=== PATIENT | male | born 1955 | race Caucasian/White ===

== ENCOUNTER 2020-07-19 09:20 | Inpatient (IN) | payer MEDICARE, SELFPAY ==
[2020-07-19] VITALS (9 sets, daily range): BP systolic 119–151; BP diastolic 68–88; PULSE 66–82; RESP 12–18; TEMP 36.4–36.5; O2SAT 97–99; BMI 24.3
--- NOTE | 2020-07-19 | ECG_ITS ---
Test Reason : EPIGASTRIC PAIN Blood Pressure : / mmHG Vent. Rate : 073 BPM Atrial Rate : 073 BPM P-R Int : 154 ms QRS Dur : 084 ms QT Int : 392 ms P-R-T Axes : 064 052 054 degrees QTc Int : 431 ms Normal sinus rhythm Normal ECG When compared with ECG of 01-SEP-2019 16:14, No significant change was found Referred By: Generic ED Physician Electronically Signed By:MYLA DON MD
--- NOTE | ~2020-07-19 | CT_ITS ---
EXAMINATION: CT ABDOMEN AND PELVIS WITHOUT AND WITH CONTRAST CLINICAL INFORMATION: Abnormality in pancreas and bladder COMPARISON: 07/19/2020 study TECHNIQUE: Multidetector volumetric imaging was performed of the abdomen and pelvis before and after the IV administration of 85 mL of Omnipaque 300 intravenous contrast. Sagittal and coronal reformatted images were obtained on the technologist's workstation. This CT examination was performed using dose optimization techniques as appropriate, variously including the following: *Automated exposure control *Adjustment of mA and/or kV according to patient size (this includes techniques or standardized protocols for targeted exams where dose is matched to indication/reason for exam; i.e. extremities or head) *Use of iterative reconstruction technique DLP: 757 mGy-cm FINDINGS: LUNG BASES: The visualized lung bases are unremarkable. LIVER, GALLBLADDER, AND BILIARY TREE: The liver is normal in size, shape, and attenuation. No focal hepatic lesion or biliary ductal dilatation is present. The gallbladder is unremarkable with no evidence of radiopaque gallstones, gallbladder wall thickening, or obvious pericholecystic inflammatory changes. PANCREAS: Pancreas itself is unremarkable. There is no pancreatic ductal dilatation in the pancreatic parenchyma demonstrates homogeneous enhancement. There is complex peripancreatic fluid seen more likely representing sequela of prior pancreatitis as this extends along the retroperitoneum into the lesser sac and into the perisplenic region. This does not track significantly along the pararenal space. SPLEEN: Unremarkable ADRENAL GLANDS: Unremarkable KIDNEYS AND URETERS: Tiny low-attenuation cortical cysts bilaterally but otherwise the kidneys are normal in size, shape, and attenuation. No hydronephrosis, hydroureter, or calculi seen. No perinephric stranding. BLADDER: Bladder is decompressed but relatively thick-walled. The prostate is enlarged with a prominent medial lobe of prostate protruding into the bladder base. GASTROINTESTINAL TRACT: Normal-appearing appendix in the right lower quadrant. Visualized small bowel unremarkable ABDOMINAL WALL: No significant hernia is appreciated. LYMPH NODES: Normal VASCULAR: Vascular calcification within the aorta iliac system PELVIC VISCERA: Prominent enlarged prostate with some protrusion into the bladder base from an enlarged medial lobe OSSEOUS STRUCTURES: Degenerative changes in the lower lumbar spine. CT/CT abdomen pelvis wo/w con IMPRESSION: Low attenuation fluid collection in the peripancreatic space as described above. This is difficult to accurately measure due to the irregular shape as it conforms to adjacent structures but measures approximately 14.5 x 7.0 x 7.0 cm in size. In this location this likely represents sequela of prior pancreatitis. A retroperitoneal lymphangioma could have a similar morphology but the peripancreatic location is more suggestive of pancreatic etiology. Bladder is partially decompressed but there is mild diffuse wall thickening suggesting a component of bladder outlet obstruction. The prostate is enlarged with a prominent medial lobe of the prostate protruding into the bladder base.
--- NOTE | ~2020-07-19 | CT_ITS ---
EXAMINATION: CT ABDOMEN AND PELVIS WITHOUT CONTRAST CLINICAL INFORMATION: Abdominal pain and vomiting COMPARISON: None TECHNIQUE: Multidetector volumetric imaging was performed from the superior aspect of the liver through the pubic symphysis. Sagittal and coronal reformatted images were obtained on the technologist's workstation. This CT examination was performed using dose optimization techniques as appropriate, variously including the following: *Automated exposure control *Adjustment of mA and/or kV according to patient size (this includes techniques or standardized protocols for targeted exams where dose is matched to indication/reason for exam; i.e. extremities or head) *Use of iterative reconstruction technique DLP: 8 x 5 mGy-cm FINDINGS: LUNG BASES: The visualized lung bases are unremarkable. LIVER, GALLBLADDER, AND BILIARY TREE: The liver is normal in size, shape, and attenuation. No focal hepatic lesion or biliary ductal dilatation is present. The gallbladder is unremarkable with no evidence of radiopaque gallstones, gallbladder wall thickening, or obvious pericholecystic inflammatory changes. PANCREAS: Unremarkable. SPLEEN: Unremarkable. ADRENAL GLANDS: Unremarkable. KIDNEYS AND URETERS: There is a small 1 mm stone in the left kidney. The kidneys are otherwise unremarkable. BLADDER: Not optimally distended. There may be mild diffuse bladder wall thickening. There is abnormal soft tissue at the base of the bladder. This uncertain whether this is related to the prostate gland or could represent a bladder lesion. GASTROINTESTINAL TRACT: There is question of wall wall thickening of the proximal stomach. There are cystic fluid collections or masses seen adjacent to the stomach and body and tail of the pancreas. The largest area measures 9 x 6 x 13 cm in transverse AP and longitudinal dimension. No free ascites is seen. The small and large bowel is unremarkable. The appendix is unremarkable. ABDOMINAL WALL: No significant hernia is appreciated. LYMPH NODES: Normal. VASCULAR: There is evidence of atherosclerotic disease. No aneurysm is seen. PELVIC VISCERA: The prostate gland is enlarged and measures 4.3 x 5.3 cm in AP and transverse dimension. OSSEOUS STRUCTURES: There is question of a lytic lesion versus old fracture left lateral 10th rib for example sagittal reconstructed image 12. There is old fractures of the right lateral lower ribs. There is degenerative changes of the spine. CT/CT abdomen pelvis wo con IMPRESSION: Question wall thickening of the proximal stomach. Low-attenuation cystic peritoneal masses seen adjacent to the stomach and body and tail of pancreas. Appearance is a suggestive of peritoneal disease. Malignant and infectious process considered. Abnormal soft tissue at the base of the bladder. It is uncertain whether this is related to the prostate gland or could represent a bladder lesion. Small left renal stone.
--- NOTE | 2020-07-19 09:45 | ED.ABDPAIN ---
HPI - Abdominal Pain General Chief Complaint: Abdominal Pain Stated Complaint: heartburn, upset stomach Time Seen by Provider: 07/19/20 09:43 Source: patient Mode of arrival: ambulatory Limitations: no limitations History of Present Illness HPI narrative: 65 y/o male with no significant medical history presents to the ER from Urgent Care with nausea and vomiting for the last 5-6 days. He has been unable to keep down solid food. He has burning upper abdominal pain that radiates up into his chest. He has been tolerating liquids but every times he tries to eat, about an hour later he vomits. He denies chest pain, SOB, fever, chills, urinary symptoms. He has no history of similar presentations in the past. He has a 5+ lb weight loss in the last 6 days. He has no appetite and does not want to eat anything. No fevers, chills, urinary symptoms. MD elicited complaint: abdominal pain Pertinent past history: none Onset (ago): day(s) (6) Pain Consistency: intermittent Location: epigastric Severity: moderate Quality: aching and burning Radiation: chest Migration to: no migration Exacerbating factors: eating Relieving factors: nothing Associated symptoms: nausea and vomiting Related Data Home Medications Medication Instructions Recorded Confirmed No Known Home Meds 07/19/20 07/19/20 Allergies Allergy/AdvReac Type Severity Reaction Status Date / Time No Known Allergies Allergy Mild Verified 07/19/20 09:30 Review of Systems Review of Systems Constitutional: No Fever, No Chills ENT/Mouth: No sore throat, No Rhinorrhea, No Swallowing Difficulty Cardiovascular: No Chest Pain, No SOB, No Orthopnea, No Edema Respiratory: No Cough, No Sputum, No Wheezing, No dyspnea Gastrointestinal: + Nausea, + Vomiting, No Diarrhea, + abdominal Pain Genitourinary: No Dysuria, No Urinary Frequency, No Hematuria Musculoskeletal: No joint pain, No Myalgias Skin: No Skin Lesions, No rash Neuro: No Weakness, No Numbness, No Dizziness, No Headache Psych: No Anxiety/Panic, No Depression Heme/Lymph: No Bruising, No Lymphadenopathy Endocrine: No Polyuria, No Polydipsia Physical Exam Vital Signs: Vital Signs: Last Vital Signs Temp 97.6 F 07/19/20 09:30 Pulse 76 07/19/20 10:10 Resp 17 07/19/20 10:10 BP 135/82 07/19/20 10:10 Pulse Ox 98 07/19/20 10:10 Body Mass Index 24.3 Appearance: Alert. Oriented X3. No acute distress. Eyes: Pupils equal, round and reactive to light. ENT: Pharynx normal. Neck: Normal inspection. Neck supple. CVS: Normal heart rate and rhythm. Pulses normal. Respiratory: No respiratory distress. Breath sounds normal. Abdomen: Soft with mild epigastric tenderness, no rebound or guarding. +BS x4 Skin: Skin warm and dry. Normal skin color. Normal skin turgor. No rashes. Extremities: No lower extremity edema. Neuro: Oriented X 3. No motor deficit. No sensory deficit. Course Course Course Narrative: 65 y/o male presenting with 6 days of nausea, vomiting and upper abdominal/epigastric pain. + weight loss. No appetite at all. He appears well and VS are stable. Abd is soft. Will get labs and CT scan for further evaluation. Reevaluation(s) Reevaluation #1: CT showing wall thickening of proximal stomach, cystic fluid collections vs masses adjacent to stomach and pancreatic tail. largest area measures [id number]. bowel is unremarkable, pancreas itself is normal. old fractures vs lytic lesion of 10th left lateral rib. masses are concerning for malignancy vs infectious process per report. No fever or leukocytosis. WIll add ESR and CRP although infectious process is less likely. Will require admission for further imaging and workup given his inability to tolerate PO. Results were discussed with the patient and he is agreeable to admission. Dr. Regan TT for admission. MDM - Abdominal Pain Lab Data Result diagrams: 07/19/20 10:00 07/19/20 10:00 Labs: Lab Results 07/19/20 07/19/20 07/19/20 Range/Units 10:00 10:00 10:00 WBC 6.6 (4.8-10.8) X10*3/uL RBC 5.06 (4.60-5.80) X10*6/uL Hgb 17.2 (14.0-18.0) g/dl Hct 47.7 (42-52) % MCV 94.3 (80-98) fL MCH 34.0 H (27.0-33.0) pg MCHC 36.1 H (31.0-36.0) g/dl RDW 12.8 (11.0-16.0) % Plt Count 179 (160-400) X10*3/uL MPV 10.3 (9.4-12.4) fL Immature Gran % (Auto) 0.2 (0.0-0.4) % Neut % (Auto) 62.4 (45-73) % Lymph % (Auto) 26.8 (20-40) % [place] % (Auto) 8.7 (2-11) % Eos % (Auto) 1.1 (0-4) % Baso % (Auto) 0.8 (0-2) % Lymph # (Auto) 1.8 (1.2-4.9) X10*3/uL [place] # (Auto) 0.6 (0.1-1.2) X10*3/uL Eos # (Auto) 0.1 (0.0-0.4) X10*3/uL Baso # (Auto) 0.1 (0.0-0.2) X10*3/uL Abs Immat Gran (auto) 0.01 (0.00-0.03) X10*3/uL Absolute Neuts (auto) 4.2 (2.0-8.3) X10*3/uL Absolute Nucleated RBC 0.000 (0.0-0.012) X10*3/uL Nucleated RBC % (auto) 0.0 (0.0-0.2) /100WBC Hold Blue Top SEE NOTE Sodium 140 (135-145) mmol/L Potassium 3.9 (3.3-5.1) mmol/L Chloride 109 H (96-108) mmol/L Carbon Dioxide 23 (22-29) mmol/L Anion Gap 12 (12-20) BUN 9 (9-16) mg/dL Creatinine 0.83 (0.5-1.4) mg/dL Estim Creat Clear Calc 77.9 Estimated GFR > 60 Random Glucose 114 (60-115) mg/dL Calcium 9.5 (8.4-10.2) mg/dL Magnesium 2.2 (1.6-2.6) mg/dL Total Bilirubin 0.6 (0.0-1.0) mg/dL Direct Bilirubin 0.3 (0.0-0.5) mg/dL AST 18 (5-37) U/L ALT 20 (0-40) U/L Alkaline Phosphatase 46 (39-117) U/L Total Protein 6.9 (6.5-8.0) g/dL Albumin 4.4 (3.5-5.0) g/dL Lipase 23 (8-78) U/L COVID-19 ([facility]) (Negative) COVID-19 Clin Com 07/19/20 Range/Units 10:34 WBC (4.8-10.8) X10*3/uL RBC (4.60-5.80) X10*6/uL Hgb (14.0-18.0) g/dl Hct (42-52) % MCV (80-98) fL MCH (27.0-33.0) pg MCHC (31.0-36.0) g/dl RDW (11.0-16.0) % Plt Count (160-400) X10*3/uL MPV (9.4-12.4) fL Immature Gran % (Auto) (0.0-0.4) % Neut % (Auto) (45-73) % Lymph % (Auto) (20-40) % [place] % (Auto) (2-11) % Eos % (Auto) (0-4) % Baso % (Auto) (0-2) % Lymph # (Auto) (1.2-4.9) X10*3/uL [place] # (Auto) (0.1-1.2) X10*3/uL Eos # (Auto) (0.0-0.4) X10*3/uL Baso # (Auto) (0.0-0.2) X10*3/uL Abs Immat Gran (auto) (0.00-0.03) X10*3/uL Absolute Neuts (auto) (2.0-8.3) X10*3/uL Absolute Nucleated RBC (0.0-0.012) X10*3/uL Nucleated RBC % (auto) (0.0-0.2) /100WBC Hold Blue Top Sodium (135-145) mmol/L Potassium (3.3-5.1) mmol/L Chloride (96-108) mmol/L Carbon Dioxide (22-29) mmol/L Anion Gap (12-20) BUN (9-16) mg/dL Creatinine (0.5-1.4) mg/dL Estim Creat Clear Calc Estimated GFR Random Glucose (60-115) mg/dL Calcium (8.4-10.2) mg/dL Magnesium (1.6-2.6) mg/dL Total Bilirubin (0.0-1.0) mg/dL Direct Bilirubin (0.0-0.5) mg/dL AST (5-37) U/L ALT (0-40) U/L Alkaline Phosphatase (39-117) U/L Total Protein (6.5-8.0) g/dL Albumin (3.5-5.0) g/dL Lipase (8-78) U/L COVID-19 ([facility]) Negative (Negative) COVID-19 Clin Com See Note Discharge Plan Discharge Clinical Impression: Mass of peritoneum Patient Disposition: Admitted As Inpatient [facility] Past Medical History Attestation statement: The following information was validated with the patient. Social History Social History Alcohol intake: current Alcohol intake frequency: 0-2 drinks per day Alcohol type: beer Patient Tobacco Use Status: Never used Tobacco Substance Use Type: Marijuana Advance Directives: Yes Advance Directives Information Provided: No Advance Directives on File: No
[2020-07-19 10:05] LABS: MANUAL DIFF FLAG NO
[2020-07-19 10:15] LABS: Basophils Absolute Auto 0.1 X10*3/uL (0.0-0.2); Basophils Percent Auto 0.8 % (0-2); Eosinophils Absolute Auto 0.1 X10*3/uL (0.0-0.4); Eosinophils Percent Auto 1.1 % (0-4); Hematocrit 47.7 % (42-52); Hemoglobin 17.2 g/dl (14.0-18.0); Imm Gran Abs Auto 0.01 X10*3/uL (0.00-0.03); Imm Gran Pct Auto 0.2 % (0.0-0.4); Lymphocytes Absolute Auto 1.8 X10*3/uL (1.2-4.9); Lymphocytes Percent Auto 26.8 % (20-40); Mean Corpuscular HGB Conc 36.1 g/dl (31.0-36.0); Mean Corpuscular Volume 94.3 fL (80-98); Mean Platelet Volume 10.3 fL (9.4-12.4); Monocytes Absolute Auto 0.6 X10*3/uL (0.1-1.2); Monocytes Percent Auto 8.7 % (2-11); Neutrophils Absolute Auto 4.2 X10*3/uL (2.0-8.3); Neutrophils Percent Auto 62.4 % (45-73); Platelet Count 179 X10*3/uL (160-400); Red Blood Count 5.06 X10*6/uL (4.60-5.80); Red Cell Distribution Width 12.8 % (11.0-16.0); White Blood Count 6.6 X10*3/uL (4.8-10.8)
[2020-07-19] MEDS: Omeprazole 40 MG CAPSULE.DR PO (10:24)
[2020-07-19] MEDS: Magnesium Hydrox/Alum Hydrox 30 ML ORAL.SUSP PO (10:24)
[2020-07-19] MEDS: Lidocaine HCl Viscous 2 % 15 ML SOLUTION MUCOUS MEM (10:24)
[2020-07-19 10:36] LABS: Alanine Aminotransferase 20 U/L (0-40); Albumin Level 4.4 g/dL (3.5-5.0); Alkaline Phosphatase 46 U/L (39-117); Anion Gap 12 (12-20); Aspartate Amino Transferase 18 U/L (5-37); Bilirubin Direct 0.3 mg/dL (0.0-0.5); Bilirubin Total 0.6 mg/dL (0.0-1.0); Blood Urea Nitrogen 9 mg/dL (9-16); Calcium 9.5 mg/dL (8.4-10.2); Carbon Dioxide 23 mmol/L (22-29); Chloride 109 mmol/L (96-108); Creatinine Clr Calc Pharmacy 77.9; Estimated Glomerular Filt Rate > 60; Glucose Random 114 mg/dL (60-115); Lipase 23 U/L (8-78); Magnesium 2.2 mg/dL (1.6-2.6); Potassium 3.9 mmol/L (3.3-5.1); Sodium 140 mmol/L (135-145); Total Protein 6.9 g/dL (6.5-8.0)
[2020-07-19 11:02] LABS: COVID-19 Test Negative (Negative); IDNOW Serial# 9DD0AD1C
[2020-07-19 11:42] LABS: C Reactive Protein 0.05 mg/dL (< or = 0.50)
--- NOTE | 2020-07-19 12:10 | PC.NURSE ---
Patient complains of nausea after eating a cracker. Pt denies any pain currently
[2020-07-19 12:11] LABS: Erythrocyte Sedimentation Rate 2 MM/HR (0-15)
[2020-07-19] MEDS: ondansetron HCL 4 MG/2 ML VIAL IVPUSH (12:20)
--- NOTE | 2020-07-19 12:58 | P.HPHOSP_ITS ---
[facility] Pertinent family history: Sister had breast cancer Surgical History (Updated 07/19/20 @ 12:59 by Serina Flynn NP) H/O hernia repair H/O release of tendon History of ankle surgery Social History Alcohol intake: current Alcohol intake frequency: 0-2 drinks per day Alcohol type: beer Patient Tobacco Use Status: Never used Tobacco Substance Use Type: Marijuana Advance Directives: Yes Advance Directives Information Provided: No Advance Directives on File: No Meds Allergies Allergy/AdvReac Type Severity Reaction Status Date / Time No Known Allergies Allergy Mild Verified 07/19/20 09:30 Home Medications Medication Instructions Recorded Confirmed Last Taken Type No Known Home Meds 07/19/20 07/19/20 Unknown History Physical Exam Vital Signs and Narrative: Vital Signs: Last Vital Signs Temp 97.6 F 07/19/20 09:30 Pulse 82 07/19/20 11:10 Resp 18 07/19/20 11:10 BP 146/87 H 07/19/20 11:10 Pulse Ox 98 07/19/20 10:10 Body Mass Index 24.3 Results Labs CBC and Chem 7: 07/19/20 10:00 07/19/20 10:00 Labs: Laboratory Results - last 24 hr 07/19/20 07/19/20 07/19/20 10:00 10:00 10:00 MCV 94.3 MCH 34.0 H MCHC 36.1 H RDW 12.8 Plt Count 179 MPV 10.3 Immature Gran % (Auto) 0.2 Neut % (Auto) 62.4 Lymph % (Auto) 26.8 [place] % (Auto) 8.7 Eos % (Auto) 1.1 Baso % (Auto) 0.8 Lymph # (Auto) 1.8 [place] # (Auto) 0.6 Eos # (Auto) 0.1 Baso # (Auto) 0.1 Abs Immat Gran (auto) 0.01 Absolute Neuts (auto) 4.2 Absolute Nucleated RBC 0.000 Nucleated RBC % (auto) 0.0 ESR Hold Blue Top SEE NOTE Anion Gap 12 Estim Creat Clear Calc 77.9 Estimated GFR > 60 Random Glucose 114 Calcium 9.5 Magnesium 2.2 Total Bilirubin 0.6 Direct Bilirubin 0.3 AST 18 ALT 20 Alkaline Phosphatase 46 C-Reactive Protein 0.05 Total Protein 6.9 Albumin 4.4 Lipase 23 COVID-19 ([facility]) COVID-19 Clin Com 06/09/21 06/09/21 10:00 10:34 MCV MCH MCHC RDW Plt Count MPV Immature Gran % (Auto) Neut % (Auto) Lymph % (Auto) [place] % (Auto) Eos % (Auto) Baso % (Auto) Lymph # (Auto) [place] # (Auto) Eos # (Auto) Baso # (Auto) Abs Immat Gran (auto) Absolute Neuts (auto) Absolute Nucleated RBC Nucleated RBC % (auto) ESR 2 Hold Blue Top Anion Gap Estim Creat Clear Calc Estimated GFR Random Glucose Calcium Magnesium Total Bilirubin Direct Bilirubin AST ALT Alkaline Phosphatase C-Reactive Protein Total Protein Albumin Lipase COVID-19 ([facility]) Negative COVID-19 Clin Com See Note Imaging Radiologist's Impressions: Impressions Abdomen/Pelvis CT 07/19/20 09:53 IMPRESSION: Question wall thickening of the proximal stomach. Low-attenuation cystic peritoneal masses seen adjacent to the stomach and body and tail of pancreas. Appearance is a suggestive of peritoneal disease. Malignant and infectious process considered. Abnormal soft tissue at the base of the bladder. It is uncertain whether this is related to the prostate gland or could represent a bladder lesion. Small left renal stone.
--- NOTE | 2020-07-19 13:16 | PC.NURSE ---
pt states nausea is much better after zofran. Pt denies any pain. Pt is currently sitting up in bed talking with visitor in no distress
[2020-07-19 13:51] LABS: Glucose Urine UA NEG (NEG); Leukocyte Esterase Urine NEG (NEG); Nitrite Urine NEG (NEG); Urine Blood NEG (NEG); Urine Ketones NEG (NEG); Urine Protein NEG (NEG-TRACE)
[2020-07-19 13:54] LABS: Appearance Urine HAZY; Color Urine YELLOW
--- NOTE | 2020-07-19 13:59 | PC.NURSE ---
MRI screening form completed and faxed to MRI.
--- NOTE | 2020-07-19 14:09 | PM.GICN ---
History of Present Illness Data of Consult Service Date: 07/19/20 Requesting physician: Serina Flynn Primary Care Provider: Paulino Christian MD HPI Reason for consult: nausea, an imaging 65 y/o male with no major medical issues who I am asked to see for evaluation of nausea and vomiting with abnormal imaging He had almost a week hx of nausea and vomiting of food normally within 1-2 hr of eating, without any blood or coffee grounds seen. He had been noting severe reflux and early satiety as well but denies abdominal pain but more a sensation of twisting inside the body. appetite has been good before tis and weight was normal, without any symptoms. He had noted 5# weight loss within the last week. He denies melena, rectal bleeding, or constipation or diarrhea. No dysphagia or fevers, chills. No chest pain He had colonoscopy recently at outside hospital which was apparently normal, never had EGD. He smokes THC, drinks beer daily for years about 2-3 cans. Labs: unremarkable, CT imaging --personally reviewed, abn cystic collections around stomach, thickened bladder Review of Systems Review of Systems: Constitutional: No Fever, No Chills ENT/Mouth: No sore throat, No Rhinorrhea, No Swallowing Difficulty Cardiovascular: No Chest Pain, No SOB, No Orthopnea, No Edema Respiratory: No Cough, No Sputum, No Wheezing, No dyspnea Gastrointestinal: + Nausea, + Vomiting, No Diarrhea Genitourinary: No Dysuria, No Urinary Frequency, No Hematuria Musculoskeletal: No joint pain, No Myalgias Skin: No Skin Lesions, No rash Neuro: No Weakness, No Numbness, No Dizziness, No Headache Psych: No Anxiety/Panic, No Depression Heme/Lymph: No Bruising, No Lymphadenopathy Endocrine: No Polyuria, No Polydipsia [facility] Family History Pertinent family history: Sister had breast cancer Surgical History Surgical History (Updated 07/19/20 @ 12:59 by Serina Flynn NP) H/O hernia repair H/O release of tendon History of ankle surgery Social History Social History Alcohol intake: current Alcohol intake frequency: 0-2 drinks per day Alcohol type: beer Patient Tobacco Use Status: Never used Tobacco Substance Use Type: Marijuana Advance Directives: Yes Advance Directives Information Provided: No Advance Directives on File: No Meds Allergies Allergy/AdvReac Type Severity Reaction Status Date / Time No Known Allergies Allergy Mild Verified 07/19/20 09:30 Active Medications: Current Medications Generic Name Dose Route Start Last Admin Trade Name [place] PRN Reason Stop Dose Admin Acetaminophen 650 mg 07/19/20 13:33 Acetaminophen 325 Mg Tablet PO Q6H PRN Pain, Mild (Pain Scale 1-3) Ondansetron HCl 4 mg 07/19/20 13:33 Ondansetron Hcl 4 Mg/2 Ml Vial IVPUSH Q8H PRN Nausea and Vomiting Pantoprazole Sodium 40 mg 07/20/20 06:30 Pantoprazole Sodium 40 Mg/10 Ml Vial IVPUSH DAILY@0630 [facility] Sodium Chloride 3 ml 07/19/20 16:00 0.9 % Sodium Chloride Flush 3 Ml Syringe IVFLUSH QSHIFT [facility] Home Medications Medication Instructions Recorded Confirmed Last Taken Type No Known Home Meds 07/19/20 07/19/20 Unknown History Physical Exam Vital Signs: Vital Signs: Last Vital Signs Temp 97.6 F 07/19/20 09:30 Pulse 78 07/19/20 13:15 Resp 18 07/19/20 13:15 BP 151/88 H 07/19/20 13:15 Pulse Ox 97 07/19/20 13:15 Body Mass Index 24.3 EXAM: GENERAL: The patient is well developed and nontoxic. Relaxed. VITAL SIGNS:see workflow HEENT: Nonicteric sclerae, PERRLA, EOMI. Oropharynx clear. Moist mucous membranes. Conjunctivae appear well perfused. No thyroid mass. CHEST: Chest wall is nontender. HEART: Regular rate and rhythm without murmurs. LUNGS: Clear to auscultation bilaterally, some reduced air entry both sides ABDOMEN: Soft, positive bowel sounds, nontender, no organomegaly.no flank tenderness SKIN: No rash, no excessive bruising, petechiae, or purpura. NEUROLOGIC: Cranial nerves II-XII intact without motor/sensory deficit. AAO x 3 Psych--normal affect MS- normal ROM Results Labs CBC & Chem 7: 07/19/20 10:00 07/19/20 10:00 Labs: Short CBC 07/19/20 Range/Units 10:00 WBC 6.6 (4.8-10.8) X10*3/uL Hgb 17.2 (14.0-18.0) g/dl Hct 47.7 (42-52) % Plt Count 179 (160-400) X10*3/uL BMP 07/19/20 10:00 Sodium 140 Potassium 3.9 Chloride 109 H Carbon Dioxide 23 BUN 9 Creatinine 0.83 Calcium 9.5 Liver Function 07/19/20 Range/Units 10:00 Total Bilirubin 0.6 (0.0-1.0) mg/dL Direct Bilirubin 0.3 (0.0-0.5) mg/dL AST 18 (5-37) U/L ALT 20 (0-40) U/L Alkaline Phosphatase 46 (39-117) U/L Albumin 4.4 (3.5-5.0) g/dL Urine 07/19/20 Range/Units 13:27 Urine Color YELLOW Urine Appearance HAZY Urine pH 6.0 (5.0-8.0) Ur Specific [place] 1.010 (1.005-1.025) Urine Protein NEG (NEG-TRACE) MG/DL Urine Glucose (UA) NEG (NEG) MG/DL Assessment and Plan (1) Vomiting: Qualifiers: Vomiting type: unspecified Vomiting Intractability: non-intractable Nausea presence: without nausea Qualified Code(s): R11.11 - Vomiting without nausea Status: Acute 1/ Symptoms may be due to Gastric outlet obstruction from the lesions around the stomach or may be due to ulcers or other intra-luminal stomach lesions vs gastroparesis. Imaging with lesions as noted may be panc ca or bladder ca with mets although he has no urine sx or prior sx to this admission. Other differential might be pseudocysts from chronic pancreatitis given his alcohol use. He feels better since getting PPI, anti emetics and fluids PLAN: 1/ recommend CT A/P with PO and IV contrast 2/ Possible EGD tomorrow depending on Ct results, keep NPO after midnight 3/ pls check urine cytology, [id number] 4/ keep on PPI meantime Procedures Date of Service Date of Service: 07/19/20
[2020-07-19] MEDS: 0.9 % Sodium Chloride Flush 3 ML SYRINGE IVFLUSH (16:48)
--- NOTE | 2020-07-19 16:58 | HP_ITS ---
DATE OF SERVICE: 07/19/2020 CHIEF COMPLAINT: Abdominal pain. HISTORY OF PRESENT ILLNESS: 65-year-old man presents with complaints of abdominal pain, nausea, and vomiting over the last 6 days. He reports he tries to the eat and then he vomits. He denied fever, chills, recent travel, improperly cooked foods. He reports that he is in fairly good health. He is not on any medications at home. He smokes marijuana and drinks 4 beers a day. In the ER, all his labs were within acceptable limits. Vital signs stable. Abdominal and pelvic CT showed a question of wall thickening of the proximal stomach with a cystic peritoneal mass adjacent to the stomach and body and tail of the pancreas. He received Maalox, Prilosec, and Zofran in the ER. He will be admitted for further management and treatment of abdominal pain with pancreatic abnormality. PAST MEDICAL HISTORY: None. PAST SURGICAL HISTORY: 1. Wrist surgery. 2. Hernia repair with mesh. 3. History of release of tendon to hand. FAMILY HISTORY: Denies cardiac disease and cancer. SOCIAL HISTORY: Drinks 4 beers a day. Denies tobacco use. Uses marijuana on a regular basis. ALLERGIES: NO KNOWN ALLERGIES. MEDICATIONS: None. LABS: WBC 6.6, hemoglobin 17.2, hematocrit 47.7, platelets 179. Sodium is 140, potassium 3.9, chloride is 109. BUN is 9, creatinine 0.83, AST 18, ALT 20, total bilirubin 0.6, lipase 23. COVID negative. REVIEW OF SYSTEMS: CONSTITUTIONAL: Denies any recent fever, chills, or decrease in appetite. RESPIRATORY: Denies any shortness of breath, cough, or sputum production. CARDIOVASCULAR: Denies any chest pain, orthopnea, PND, or edema. GASTROINTESTINAL: See HPI. GENITOURINARY: Denies any dysuria, frequency, or hematuria. MUSCULOSKELETAL: Denies joint pain or swelling. NEUROPSYCH: Denies any weakness or seizures. All other systems are reviewed and are negative. PHYSICAL EXAMINATION: CONSTITUTIONAL: Resting in bed. No acute distress. VITAL SIGNS: 97.6, 70, 18, 151/88, 97% on room air. SKIN: Intact without rash or sores. HEENT: Head is normocephalic, atraumatic. Eyes, pupils are PERRLA. Sclerae anicteric. Mouth and Throat: Mucous membranes are intact and moist. NECK: Supple. No lymphadenopathy. No JVD noted. CHEST: Clear to auscultation without wheezes, rhonchi, or rales. HEART: Regular rate and rhythm. Clear S1, S2. No murmurs, rubs, or gallops. ABDOMEN: Positive bowel sounds. Soft, nontender. No hepatomegaly or splenomegaly noted. NEURO: The patient is alert and oriented x3. Cranial nerves II through XII are grossly intact without focal deficits. ASSESSMENT AND PLAN: 65-year-old man admitted with abnormal CAT scan showing some abnormalities to the proximal stomach and body and tail of the pancreas. According to the CAT scan suggestion its peritoneal disease, malignancy versus infection. 1. Abdominal pain. Abnormal CAT scan, no significant medical history, no history of cancer. Gastroenterology consultation, MR of the abdomen with and without contrast. IV PPI. N.p.o. for now and advance diet. Pain medication as needed. 2. Elevated blood pressure reading. No history of hypertension. Likely related to pain and possible anxiety over being in the hospital. We will monitor blood pressure closely. 3. Deep vein thrombosis prophylaxis with heparin. 4. Case discussed with Dr. Leija. 5. Full code. DANIEL Melgar MD JR/DAR / [id number] I saw and examined patient and discussed finding and mangement with [employer] and agree with rose SALMERON
[2020-07-20] VITALS (13 sets, daily range): BP systolic 97–173; BP diastolic 68–96; PULSE 66–84; RESP 14–18; TEMP 35.8–37.2; O2SAT 95–99
[2020-07-20] MEDS: 0.9 % Sodium Chloride Flush 3 ML SYRINGE IVFLUSH ×3 (01:24→17:22)
[2020-07-20 05:00] LABS: MANUAL DIFF FLAG NO
[2020-07-20 05:08] LABS: Basophils Absolute Auto 0.1 X10*3/uL (0.0-0.2); Basophils Percent Auto 0.8 % (0-2); Eosinophils Absolute Auto 0.2 X10*3/uL (0.0-0.4); Eosinophils Percent Auto 3.5 % (0-4); Hematocrit 46.6 % (42-52); Hemoglobin 16.5 g/dl (14.0-18.0); Imm Gran Abs Auto 0.02 X10*3/uL (0.00-0.03); Imm Gran Pct Auto 0.3 % (0.0-0.4); Lymphocytes Absolute Auto 1.7 X10*3/uL (1.2-4.9); Lymphocytes Percent Auto 28.9 % (20-40); Mean Corpuscular HGB Conc 35.4 g/dl (31.0-36.0); Mean Corpuscular Hemoglobin 33.7 pg (27.0-33.0); Mean Corpuscular Volume 95.1 fL (80-98); Mean Platelet Volume 10.8 fL (9.4-12.4); Monocytes Absolute Auto 0.6 X10*3/uL (0.1-1.2); Monocytes Percent Auto 9.6 % (2-11); Neutrophils Absolute Auto 3.4 X10*3/uL (2.0-8.3); Neutrophils Percent Auto 56.9 % (45-73); Platelet Count 184 X10*3/uL (160-400); Red Cell Distribution Width 12.9 % (11.0-16.0)
[2020-07-20] MEDS: Pantoprazole Sodium 40 MG/10 ML VIAL IVPUSH (05:30)
[2020-07-20 05:44] LABS: Anion Gap 14 (12-20); Blood Urea Nitrogen 9 mg/dL (9-16); Calcium 9.3 mg/dL (8.4-10.2); Carbon Dioxide 25 mmol/L (22-29); Chloride 104 mmol/L (96-108); Creatinine Clr Calc Pharmacy 72.6; Estimated Glomerular Filt Rate > 60; Glucose Random 97 mg/dL (60-115); Potassium 4.4 mmol/L (3.3-5.1); Sodium 139 mmol/L (135-145)
--- NOTE | 2020-07-20 12:26 | HO.PM.IMPN ---
Subjective Subjective Date of Service: 07/20/20 <CLARITA Richardson - Last Filed: 07/20/20 12:37> 07/20/20 <Jered Leija MD - Last Filed: 07/20/20 17:29> Interval History: seen and examined this morning abdominal pain controlled at this time. denies nausea or vomiting no overnight events <CLARITA Richardson - Last Filed: 07/20/20 12:37> Review of Systems Review of Systems: Yes all other systems are reviewed and are negative <CLARITA Richardson - Last Filed: 07/20/20 12:37> Constitutional Constitutional: Denies chills and Denies fever(s) <CLARITA Richardson - Last Filed: 07/20/20 12:37> Cardiovascular Cardiovascular: Denies chest pain <CLARITA Richardson - Last Filed: 07/20/20 12:37> Respiratory Respiratory: Denies cough <CLARITA Richardson - Last Filed: 07/20/20 12:37> Gastrointestinal Gastrointestinal: Reports abdominal pain <CLARITA Richardson - Last Filed: 07/20/20 12:37> Physical Exam Vital Signs: Vital Signs: Last Vital Signs Temp 97.1 F 07/20/20 11:20 Pulse 74 07/20/20 11:20 Resp 17 07/20/20 11:20 BP 173/96 H 07/20/20 11:20 Pulse Ox 99 07/20/20 11:20 Body Mass Index 24.3 <CLARITA Richardson - Last Filed: 07/20/20 12:37> Const: General: no acute distress, alert and awake <CLARITA Richardson - Last Filed: 07/20/20 12:37> Nutritional Appearance: well nourished <CLARITA Richardson - Last Filed: 07/20/20 12:37> Orientation/consciousness: patient oriented x3 <CLARITA Richardson - Last Filed: 07/20/20 12:37> HENMT: Head: Yes normocephalic and Yes atraumatic <CLARITA Richardson - Last Filed: 07/20/20 12:37> Eyes: Sclerae: sclerae normal <CLARITA Richardson Last Filed: 07/20/20 12:37> Resp: Effort & Inspection: normal respiratory effort and no respiratory distress <CLARITA Richardson Last Filed: 07/20/20 12:37> Cardio: Rate: regular rate <CLARITA Richardson Last Filed: 07/20/20 12:37> Rhythm: regular rhythm <CLARITA Richardson Last Filed: 07/20/20 12:37> GI: Palpation (GI): Soft to palpation <CLARITA Richardson Last Filed: 07/20/20 12:37> Neuro: General: patient oriented x3 <CLARITA Richardson Last Filed: 07/20/20 12:37> Cranial nerves: Yes CN's II-XII intact bilaterally and Yes Bilaterally intact EOM present <CLARITA Richardson Last Filed: 07/20/20 12:37> Objective Data Current Medications Generic Name Dose Route Start Last Admin Trade Name Freq PRN Reason Stop Dose Admin Acetaminophen 650 mg 07/19/20 13:33 Acetaminophen 325 Mg Tablet PO Q6H PRN Pain, Mild (Pain Scale 1-3) Ondansetron HCl 4 mg 07/19/20 13:33 Ondansetron Hcl 4 Mg/2 Ml Vial IVPUSH Q8H PRN Nausea and Vomiting Pantoprazole Sodium 40 mg 07/20/20 06:30 07/20/20 05:30 Pantoprazole Sodium 40 Mg/10 Ml Vial IVPUSH 40 mg DAILY@0630 MARIAM Administration Sodium Chloride 3 ml 07/19/20 16:00 07/20/20 08:00 0.9 % Sodium Chloride Flush 3 Ml Syringe IVFLUSH 3 ml QSHIFT MARIAM Administration <CLARITA Richardson Last Filed: 07/20/20 12:37> Labs CBC & Chem 7: : 07/20/20 04:27 07/20/20 04:27 <CLARITA Richardson Last Filed: 07/20/20 12:37> Assessment and Plan (1) Mass of peritoneum: Status: Acute <CLARITA Richardson Last Filed: 07/20/20 12:37> Assessment and Plan: This is a 65-year-old man admitted with abnormal CAT scan showing some abnormalities to the proximal stomach and body and tail of the pancreas. According to the CAT scan suggestion its peritoneal disease, malignancy versus infection. 1. Abdominal pain. Abnormal CAT scan Seen by Gastroenterology -CT with contrast pending for further clarification -EGD planned for this afternoon -continue IV PPI. -N.p.o. -further management based on results of EGD/CT scan 2. Elevated blood pressure reading. No history of hypertension. Likely related to pain and possible anxiety over being in the hospital -monitor blood pressure closely. 3. Deep vein thrombosis prophylaxis with heparin. Full code. Attending: Dr. ramirez <CLARITA Richardson - Last Filed: 07/20/20 12:37>
--- NOTE | 2020-07-20 12:57 | MHC.CM.PN ---
NURSE STICK WELDER NTOE ELECTRONIC MEDICAL RECORD REVIEWED ALONG WITH CASE DISCUSSED ON MULTIPLE DISCIPLAINRY ROUNDS MET WITH PATIENT HE REPORTS SHE SHARE APARTEMENT WITH ASOME FRIENDS. HE IS RETIRED, ACTIVE, INDEPENDENT IN ALL ADLS AND MOBILIT WITH OUT ANY DEVICES , HE REPORTED THAT HE HAD THE COVID VACINATION, HEDUCATED ABOUT THE IMPORTANCE OF HAVING A HEALTH CARE PROXY , HE REPORTED THAT HE HAD A COLONOSCOPY 3 WEEKS AGO AND POLYP WAS FOUND AND WAS NEGATICVE , HE HAS STARTED HAVUING ABDOMINAL PAIN HE REPORTED THAT HE HAS A COUPBLE OF BEERS SEVERAL TIMES A WEEK BUT DOES NOT FELL HE HAS A PROBLEM HE HAS NO VNA /NO DME SERVICES IN THE HOME PLANS PER HOSPITLAIST ARE EGD TODAY , NPO IV ANTIEMETIC AND IV PROTONI. PATIENT REPORTS MARIJUANA USE SOCIALLY . DISCHARGE PLAN POSSIBLE D/C LATER [facility] NO SERVICES PCP DR HITESH RANGEL TRANSPORTATION FAMILY FRIENDS MEDICARE IMM EXPLAINED TO HIM AND LEFT AT BEDSIDE
[2020-07-20] MEDS: iohexoL 350 MG/ML 100 ML INFUS..BTL IV (14:16)
[2020-07-20] MEDS: Barium Sulfate Oral (Vanilla) 450 ML ORAL.SUSP 900 ML PO (14:17)
--- NOTE | 2020-07-20 15:30 | PC.NURSE ---
patient transferred to OR via stretcher by transporter
[2020-07-20] MEDS: Lactated Ringers 500 ML 20 ML IVCONT ×2 (16:00→17:38)
--- NOTE | 2020-07-20 16:01 | P.CONAN_ITS ---
[facility] Active Problems Active Problems: All Active Problems (Updated 07/19/20 @ 11:39 by CLARITA Goel) Mass of peritoneum (Acute) Vomiting (Acute) Eructation (Acute) Anorexia (Acute) Surgical History Surgical History H/O hernia repair H/O release of tendon History of ankle surgery Social History Social History Household Members: Other Housing: House Do you presently have visiting nurse or other home services: No Alcohol intake: current Alcohol intake frequency: 3 or more drinks per day Alcohol type: beer Patient Tobacco Use Status: Never used Tobacco Substance Use Type: Marijuana Advance Directives Date on File: 07/19/20 service: No Current occupational status: retired Meds Allergies Allergy/AdvReac Type Severity Reaction Status Date / Time No Known Allergies Allergy Mild Verified 07/19/20 09:30 Active Medications: Current Medications Generic Name Dose Route Start Last Admin Trade Name Freq PRN Reason Stop Dose Admin Acetaminophen 650 mg 07/19/20 13:33 Acetaminophen 325 Mg Tablet PO Q6H PRN Pain, Mild (Pain Scale 1-3) Ondansetron HCl 4 mg 07/19/20 13:33 Ondansetron Hcl 4 Mg/2 Ml Vial IVPUSH Q8H PRN Nausea and Vomiting Oxycodone HCl 5 mg 07/20/20 12:35 Oxycodone Hcl Immed Release 5 Mg Tablet PO Q6H PRN Pain, Moderate (Pain Scale 4-6 Pantoprazole Sodium 40 mg 07/20/20 06:30 07/20/20 05:30 Pantoprazole Sodium 40 Mg/10 Ml Vial IVPUSH 40 mg DAILY@0630 MARIAM Administration Sodium Chloride 3 ml 07/19/20 16:00 07/20/20 08:00 0.9 % Sodium Chloride Flush 3 Ml Syringe IVFLUSH 3 ml QSHIFT MARIAM Administration Home Medications Medication Instructions Recorded Confirmed Last Taken Type No Known Home Meds 07/19/20 07/19/20 Unknown History Exam Exam Date and Time: July 20, 2020 1601 Height,Weight and Vital Signs: Height 5 ft 6 in Weight 68.5 kg Last Vital Signs Temp 99 F 07/20/20 15:43 Pulse 74 07/20/20 15:43 Resp 18 07/20/20 15:43 BP 136/85 07/20/20 15:43 Pulse Ox 97 07/20/20 15:43 Pertinent Lab Results Pertinent Lab Results: Laboratory Tests 07/19/20 07/19/20 07/19/20 10:00 10:00 10:00 WBC 6.6 RBC 5.06 Hgb 17.2 Hct 47.7 MCV 94.3 MCH 34.0 H MCHC 36.1 H RDW 12.8 Plt Count 179 MPV 10.3 Immature Gran % (Auto) 0.2 Neut % (Auto) 62.4 Lymph % (Auto) 26.8 [place] % (Auto) 8.7 Eos % (Auto) 1.1 Baso % (Auto) 0.8 Lymph # (Auto) 1.8 [place] # (Auto) 0.6 Eos # (Auto) 0.1 Baso # (Auto) 0.1 Abs Immat Gran (auto) 0.01 Absolute Neuts (auto) 4.2 Absolute Nucleated RBC 0.000 Nucleated RBC % (auto) 0.0 ESR Hold Blue Top SEE NOTE Sodium 140 Potassium 3.9 Chloride 109 H Carbon Dioxide 23 Anion Gap 12 BUN 9 Creatinine 0.83 Estim Creat Clear Calc 77.9 Estimated GFR > 60 Random Glucose 114 Calcium 9.5 Magnesium 2.2 Total Bilirubin 0.6 Direct Bilirubin 0.3 AST 18 ALT 20 Alkaline Phosphatase 46 C-Reactive Protein 0.05 Total Protein 6.9 Albumin 4.4 Lipase 23 Urine Color Urine Appearance Urine pH Ur Specific Minerva Urine Protein Urine Glucose (UA) Urine Ketones Urine Blood Urine Nitrite Ur Leukocyte Esterase COVID-19 ([facility]) COVID-19 Clin Com 07/19/20 07/19/20 07/19/20 10:00 10:34 13:27 WBC RBC Hgb Hct MCV MCH MCHC RDW Plt Count MPV Immature Gran % (Auto) Neut % (Auto) Lymph % (Auto) [place] % (Auto) Eos % (Auto) Baso % (Auto) Lymph # (Auto) [place] # (Auto) Eos # (Auto) Baso # (Auto) Abs Immat Gran (auto) Absolute Neuts (auto) Absolute Nucleated RBC Nucleated RBC % (auto) ESR 2 Hold Blue Top Sodium Potassium Chloride Carbon Dioxide Anion Gap BUN Creatinine Estim Creat Clear Calc Estimated GFR Random Glucose Calcium Magnesium Total Bilirubin Direct Bilirubin AST ALT Alkaline Phosphatase C-Reactive Protein Total Protein Albumin Lipase Urine Color YELLOW Urine Appearance HAZY Urine pH 6.0 Ur Specific Min[place] 1.010 Urine Protein NEG Urine Glucose (UA) NEG Urine Ketones NEG Urine Blood NEG Urine Nitrite NEG Ur Leukocyte Esterase NEG COVID-19 ([facility]) Negative COVID-19 Clin Com See Note 07/20/20 07/20/20 04:27 04:27 WBC 6.0 RBC 4.90 Hgb 16.5 Hct 46.6 MCV 95.1 MCH 33.7 H MCHC 35.4 RDW 12.9 Plt Count 184 MPV 10.8 Immature Gran % (Auto) 0.3 Neut % (Auto) 56.9 Lymph % (Auto) 28.9 [place] % (Auto) 9.6 Eos % (Auto) 3.5 Baso % (Auto) 0.8 Lymph # (Auto) 1.7 [place] # (Auto) 0.6 Eos # (Auto) 0.2 Baso # (Auto) 0.1 Abs Immat Gran (auto) 0.02 Absolute Neuts (auto) 3.4 Absolute Nucleated RBC 0.000 Nucleated RBC % (auto) 0.0 ESR Hold Blue Top Sodium 139 Potassium 4.4 Chloride 104 Carbon Dioxide 25 Anion Gap 14 BUN 9 Creatinine 0.89 Estim Creat Clear Calc 72.6 Estimated GFR > 60 Random Glucose 97 Calcium 9.3 Magnesium Total Bilirubin Direct Bilirubin AST ALT Alkaline Phosphatase C-Reactive Protein Total Protein Albumin Lipase Urine Color Urine Appearance Urine pH Ur Specific Minerva Urine Protein Urine Glucose (UA) Urine Ketones Urine Blood Urine Nitrite Ur Leukocyte Esterase COVID-19 ([facility]) COVID-19 Clin Com Airway Mallampati Class: II TM Dist: >3cm Neck ROM: Full Loose/Missing/Broken Teeth: No Heart: RRR Lungs: CTA Assessment and Plan Assessment Anesthesia Assessment: Anesthesia Plan Discussed and Chart Reviewed Final Anesthetic Review NPO: Yes ASA Class: I Final Preanesthetic Review: No Changes in Pt Med Stat, Meds/Allgs Chart Reviewed, Consent Obtained/Reviewed and Anes Risks/Benef Reviewed Patient Risk: Low Procedure Risk: Low Anesthetic Plan Anesthetic Plan: MAC: Disposition: Standard PACU
--- NOTE | 2020-07-20 16:06 | MHC.SHP ---
Pre-Procedural Eval Section A The patient is an INPATIENT: Yes The History & Physical has been completed within 30 days and I have reviewed it.: Yes Section B Chief Complaint: Abdominal pain Allergies: Allergies Allergy/AdvReac Type Severity Reaction Status Date / Time No Known Allergies Allergy Mild Verified 07/19/20 09:30 Plan Diagnosis/Plan: Unchanged I have reviewed the history and physical and performed a pertinent physical examination on my patient. No changes have occurred unless specified.
--- NOTE | 2020-07-20 16:06 | PM.OP ---
Brief Operative Note Date of Service: 07/20/20 Pre-op diagnosis: nausea and vomiting Post-op diagnosis: same Procedure: see op note Surgeon: Riley Joseph MD Anesthesia: MAC Was an Fire Protection Equipment Technician used for this Procedure?: No Estimated blood loss (mL): 0 Condition: stable Disposition: PACU
--- NOTE | 2020-07-20 16:06 | W.PM.OPN ---
Operative Note Operative Note Date of Service: 07/20/20 Narrative: Procedure Description: EGD FLEXIBLE TRANSORAL UPPER GASTROINTESTINAL ENDOSCOPY UPPER ENDOSCOPY Consent: Indications for the procedure and potential complications of bleeding, perforation, reaction to medications and missed diagnosis were discussed with the patient and informed consent was obtained. Instrument: Olympus GIF H 190 J mid size upper endoscope Monitoring: Vital signs and clinical assessment, continuous EKG monitoring, Pulse oximetry, Carbon Dioxide monitoring and blood pressure monitoring were done throughout the procedure. Procedure: The patient was placed in the left lateral decubitis position and pre-procedure medications were administered and a bite block was placed. The endoscope was inserted into the mouth and advanced under direct vision to the third part of duodenum. A careful inspection was made as the upper endoscope was withdrawn including a retroflexed examination of the proximal stomach; Findings and interventions are described below. Findings: Larynx:normal Esophagus: GE junction at 40 cm, diaphragm hiatus at 40 cm, mild esophagitis noted with small varices which collapsed with air insufflation. Small inlet patch noted in proximal esophagus. Stomach: Patchy gastric erythema with erosions. Biopsies were obtained. Grade 2 flap valve on retroflexed examination of the cardia. Duodenum: bulbar duodenitis with swelling noted bx taken Intervention: Biopsies as noted above Impression/Findings: duodenitis erosive gastritis esophagitis inlet patch small varices PLAN: can allow to eat today CT findings noted with probable pseudocysts, needs to stop drinking, woudl repeat CT in 8 weeks or so and check for splenic vein thrombosis at that time d/c with pantoprazole 40 mg bid avoid over eating, small meals
[2020-07-21 03:16] VITALS: BP 117/64; PULSE 78; RESP 16; TEMP 35.8; O2SAT 98
[2020-07-21] MEDS: Pantoprazole Sodium 40 MG/10 ML VIAL IVPUSH (05:44)
[2020-07-21 07:14] VITALS: BP 138/82; PULSE 72; RESP 18; TEMP 36.6; O2SAT 97
[2020-07-21] MEDS: 0.9 % Sodium Chloride Flush 3 ML SYRINGE IVFLUSH (08:21)
--- NOTE | 2020-07-21 09:50 | PM.DS ---
DS: Providers Provider Date of Service: 07/21/20 <CLARITA Richardson - Last Filed: 07/21/20 10:21> Date of admission: 07/19/20 13:33 <CLARITA Richardson - Last Filed: 07/21/20 10:21> Primary care physician: Paulino Christian MD <CLARITA Richardson - Last Filed: 07/21/20 10:21> Consults: 07/19/20 13:33 Consult to Gastroenterology Routine Consulting Provider: Riley Joseph Reason for consultation: abd pain Has provider been notified: No <CLARITA Richardson Last Filed: 07/21/20 10:21> DS: Diagnosis Discharge Diagnosis (1) Mass of peritoneum: Status: Acute <CLARITA Richardson - Last Filed: 07/21/20 10:21> DS: Medications Discharge Medications Home Medications: Previous Rx's Medication Instructions Recorded pantoprazole 40 mg PO BID 30 Days #60 tab 07/21/20 <CLARITA Richardson Last Filed: 07/21/20 10:21> DS: Summary Hospital Course Hospital Course: From H&P on day of admission 65-year-old man presents with complaints of abdominal pain, nausea, and vomiting over the last 6 days. He reports he tries to the eat and then he vomits. He denied fever, chills, recent travel, improperly cooked foods. He reports that he is in fairly good health. He is not on any medications at home. He smokes marijuana and drinks 4 beers a day. In the ER, all his labs were within acceptable limits. Vital signs stable. He received Maalox, Prilosec, and Zofran in the ER. He will be admitted for further management and treatment of abdominal pain with pancreatic abnormality. The initial CT showed a question of wall thickening of the proximal stomach with a cystic peritoneal mass adjacent to the stomach and body and tail of the pancreas. He was seen in consultation by Gi who recommended a CT of the abdomen with contrast as well as an EGD. The CT scan showed likely pseudocyst. EGD done on 07/20 showed duodenitis, erosive gastritis, esophagitis, inlet patch, small varices. He will be discharged home with PPI. He is encouraged to stop drinking alcohol. A repeat CT should be obtained in 8 weeks or so and check for splenic vein thrombosis at that time. Also recommend to avoid over eating, small meals. CT also showed enlarged prostate. he denies any irritative voiding symptoms. he has a urologist that he will follow up with on an as needed basis. <CLARITA Richardson - Last Filed: 07/21/20 10:21> Time Spent with Patient Time attestation: Total time spent providing and/or coordinating discharge services: <CLARITA Richardson - Last Filed: 07/21/20 10:21> Discharge coordination time: Greater than 30 minutes <CLARITA Richardson Last Filed: 07/21/20 10:21> Quality: Stroke Does the patient have a stroke diagnosis?: No <CLARITA Richardson Last Filed: 07/21/20 10:21> Physical Exam Vital Signs: Vital Signs: Last Vital Signs Temp 98 F 07/21/20 07:14 Pulse 72 07/21/20 07:14 Resp 18 07/21/20 07:14 BP 138/82 07/21/20 07:14 Pulse Ox 97 07/21/20 07:14 Body Mass Index 24.3 <CLARITA Richardson Last Filed: 07/21/20 10:21> Const: Nutritional Appearance: well nourished <CLARITA Richardson Last Filed: 07/21/20 10:21> HENMT: Head: Yes normocephalic and Yes atraumatic <CLARITA Richardson Last Filed: 07/21/20 10:21> Eyes: Sclerae: sclerae normal <CLARITA Richardson Last Filed: 07/21/20 10:21> Chest: Chest palpation & inspection: normal inspection of the chest <CLARITA Richardson Last Filed: 07/21/20 10:21> Resp: Effort & Inspection: normal respiratory effort and no respiratory distress <CLARITA Richardson Last Filed: 07/21/20 10:21> Cardio: Rate: regular rate <CLARITA Richardson Last Filed: 07/21/20 10:21> Rhythm: regular rhythm <CLARITA Richardson - Last Filed: 07/21/20 10:21> GI: Palpation (GI): Soft to palpation and nontender <CLARITA Richardson - Last Filed: 07/21/20 10:21> Neuro: Cranial nerves: Yes CN's II-XII intact bilaterally and Yes Bilaterally intact EOM present <CLARITA Richardson - Last Filed: 07/21/20 10:21> DS: Data Data Completed and Pending Pending studies at discharge: Pending at discharge 07/20/20 16:25 Surgical [PTH] Routine <CLARITA Richardson - Last Filed: 07/21/20 10:21> Discharge Plan Discharge Patient Disposition: Home, Self-Care <CLARITA Rcihardson - Last Filed: 07/21/20 10:21> Discharge Diagnosis: Duodenitis/esophagitis/erosive gastritis pancreatic pseudocyst <CLARITA Richardson - Last Filed: 07/21/20 10:21> Duodenitis/esophagitis/erosive gastritis pancreatic pseudocyst <Jered Leija MD - Last Filed: 07/21/20 17:53> Referrals: Paulino Christian MD [Primary Care Provider] - 1 Week <CLARITA Richardson - Last Filed: 07/21/20 10:21> Discharge Medications: New pantoprazole 40 mg tablet,delayed release (DR/EC) 40 mg PO BID 30 Days Qty: 60 RF: 0 <CLARITA Richardson - Last Filed: 07/21/20 10:21> Discharge Orders: Discharge Order (Routine); Ordered 07/21/20 Ordered By: Brissa Romo <CLARITA Richardson - Last Filed: 07/21/20 10:21> Activity on Discharge: As tolerated <CLARITA Richardson Last Filed: 07/21/20 10:21> As tolerated <Jered Leija MD - Last Filed: 07/21/20 17:53> Stand Alone Forms: Patient Portal Discharge page <CLARITA Richardson Last Filed: 07/21/20 10:21> Care Plan Goals: see below <CLARITA Richardson - Last Filed: 07/21/20 10:21> Health Concerns: Esophagitis/duodenitis/erosive gastritis Pancreatic pseudocyst BPH <CLARITA Richardson - Last Filed: 07/21/20 10:21> Plan of Treatment: CT findings noted with probable pseudocysts, recommend complete alcohol cessation and repeat CT in 8 weeks you will be d/c with pantoprazole 40 mg bid avoid over eating, small meals <CLARITA Richardson - Last Filed: 07/21/20 10:21> Assessment: See discharge summary I saw the patient and discussed finding, mangement, and disposition with CLARITA and I agree with above, except if otherwise stated. <CLARITA Richardson - Last Filed: 07/21/20 10:21> Discharge Date/Time: 07/21/20 10:30 <CLARITA Richardson - Last Filed: 07/21/20 10:21>
--- NOTE | 2020-07-21 09:56 | HO.POSTANES ---
Post Anesthesia Evaluation Post Anesthesia Evaluation Vital Signs: Vital Signs Temp Pulse Resp BP Pulse Ox 07/21/20 07:14 98 F 72 18 138/82 97 07/21/20 03:16 96.4 F L 78 16 117/64 98 07/20/20 23:19 96.5 F L 84 16 132/72 99 Anesthesia: Monitored Mental Status: Awake Pain Control: Satisfactory Nausea/Vomiting: None Hydration: Adequate Anesthesia-Related Issues: No Anes. Related Issues
--- NOTE | 2020-07-21 10:26 | MHC.CM.PN ---
nurse pharmacy customer care specialist note electronic medical record reviewed , met with patient and case discussed with staff nurse jennifer is aware that he will be discharged home discharge plan home no services pcp patient instructed to follow up with his pcp post hospital discharge transportation-family/friend
[2020-07-21 12:42] LABS: Carbohydrate Antigen 19-9 15 U/mL (<34)
== END 2020-07-21 10:30 | disposition home or self-care (01) | DRG 392 ==
LOC: HO.ED 11:39 → HO.S3 14:09
PROVIDERS: Internal Medicine Gastroenterology; Physician Assistant; Physician Assistant Medical; Admitting Provider Nurse Practitioner Acute Care; Emergency Provider Emergency Medicine; PCP Internal Medicine; Visit Provider Internal Medicine
PROC: 0DJ08ZZ Inspection of Upper Intestinal Tract, Via Natural or Artificial Opening Endoscopic (ICD-10-PCS; CPT 43235; principal; 2020-07-20 17:50)
DX: K29.60 Other gastritis without bleeding (principal); I85.00 Esophageal varices without bleeding; R03.0 Elevated blood-pressure reading, without diagnosis of hypertension; K66.8 Other specified disorders of peritoneum; K29.80 Duodenitis without bleeding; K20.90 Esophagitis, unspecified without bleeding; K22.8 Other specified diseases of esophagus; Z20.822 Contact with and (suspected) exposure to COVID-19; Z79.899 Other long term (current) drug therapy
CPT/HCPCS: 36415; 74176; 74178; 80048; 80076; 81003; 83690; 83735; 85025; 85652; 86140; 86301; 87635; 88305; 88342; 93005; 99285; J2405; Q9967

== ENCOUNTER 2020-08-15 09:10 | Outpatient (REF) | payer MEDICARE, SELFPAY ==
[2020-08-17 13:41] LABS: H Pylori Breath Test DETECTED (NOT DETECTED)
== END 2020-08-15 09:11 | disposition home or self-care (01) ==
LOC: HO.LNP 09:10
PROVIDERS: PCP Internal Medicine; Referring Provider Internal Medicine; Visit Provider Internal Medicine Gastroenterology
DX: R63.0 Anorexia (principal)
CPT/HCPCS: 83013